=== PATIENT | female | born 1975 | race Caucasian/White ===

== ENCOUNTER 2017-05-26 21:07 | Emergency (ER) | payer MEDICAID ==
[~2017-05-26] VITALS: Ht 160 cm; Wt 70.8 kg
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
[2017-05-26] MEDS ORDERED: NAPR375T3 PO (21:41)
[2017-05-26 21:52] VITALS: BP 99/82
== END 2017-05-26 21:52 | disposition home or self-care (01) ==
LOC: ER 21:07 → EEVIPCON 21:07 → ER 21:52
DX: M54.89 Other dorsalgia (principal); Z59.0 Homelessness; Y08.89XA Assault by other specified means, initial encounter; Y93.89 Activity, other specified; Y99.8 Other external cause status; Y92.89 Other specified places as the place of occurrence of the external cause
CPT/HCPCS: 99282